=== PATIENT | female | born 1995 | race African-American/Black ===

== ENCOUNTER 2024-07-01 12:44 | Emergency (ER) | payer OTHER ==
[~2024-07-01] VITALS: Ht 157.5 cm; Wt 45.9 kg
[2024-07-01 12:45] VITALS: BP 119/60; TEMP 97.5; O2SAT 100
[2024-07-01] MEDS ORDERED: XULA1DIS (12:52)
[2024-07-01] MEDS ORDERED: LEXA1TAB (12:52)
== END 2024-07-01 14:45 | disposition home or self-care (01) ==
LOC: M ED 12:44
DX: S69.91XA Unspecified injury of right wrist, hand and finger(s), initial encounter (principal); Y92.019 Unspecified place in single-family (private) house as the place of occurrence of the external cause; Y93.9 Activity, unspecified; Y99.9 Unspecified external cause status